=== PATIENT | male | born 1945 | race Caucasian/White ===

== ENCOUNTER → 2016-12-04 | Outpatient (CLI) | payer OTHER ==
[~2016-12-04] MED LIST: AZILECT1 MG PO; B COMPLEX WITH1 EACH PO; CLONIDINE0.1 PO; COZAAR100 MG PO; FISH OIL 1,0001 EAC5 PO; GRALISE600 MG PO; MULTIVITAMINS1 EAC7 PO; NORFLEX100 MG PO; QUINAPRIL 20 MG20 MG PO; SINEMET 25-1001 EAC1 PO; TRIHEXYPHENIDYL2 M1 PO; XANAX 0.25 MG0.25 MG PO; ZOCOR40 MG PO; [UNRECOGNIZED DRUG - OTHER] PO
== END ==
LOC: CAT 02:03
DX: M47.896 Other spondylosis, lumbar region (principal)

== ENCOUNTER 2017-02-21 14:50 | Emergency (ER) | payer OTHER ==
[~2017-02-21] VITALS: Ht 172.7 cm; Wt 83.9 kg
--- NOTE | ~2017-02-21 | EKG ---
[address] [place] [address] ELECTROCARDIOGRAM REPORT Name: ALLISON MOY Room #: [id number] Admission: 02/21/17 Attend Phys: Discharge: 02/21/17 Date of : 41 Report #: [id number] THIS REPORT FOR: //name// [facility] ED Test Date: 2017-02-21 Test Time: 15:18:06 Pat Name: ALLISON MOY Department: Room: 170 Gender: M Rehabilitation Therapy Aide: Ilene LOPES : 1945 Requested By: Dexter Tatum Order Number: [id number] MD: Ty Moncada Measurements Intervals Veyo Rate: 64 P: 28 KS: 170 QRS: 22 QRSD: 104 T: 12 QT: 443 QTc: 457 Interpretive Statements Sinus rhythm Abnormal R-wave progression, early transition Compared to ECG 11/20/2016 16:09:33 No significant changes Electronically Signed On 02-24-2017 10:54:56 CDT by Ty Moncada [email or web address] <ELECTRONICALLY SIGNED> By: Ty Moncada MD 02/24/17 1054 1518 151 Ty Moncada MD /KARLO
[2017-02-21 14:52] VITALS: BP 183/96
[2017-02-21 15:16] LABS: URINE BILIRUBIN NEGATIVE (Negative); URINE BLOOD NEGATIVE (Negative); URINE COLOR YELLOW; URINE GLUCOSE-RANDOM* NEGATIVE (Negative); URINE KETONES NEGATIVE (Negative); URINE LEUKOCYTES-REFLEX NEGATIVE (Negative); URINE PROTEIN (DIPSTICK) NEGATIVE (Negative); URINE UROBILINOGEN 0.2 E.U./dl (0.2-1.0)
[2017-02-21 15:28] LABS: ABSOLUTE NEUTROPHILS 2.9 thou/uL (1.4-8.2); BASOPHILS 0.5 % (0.0-2.0); EOSINOPHILS 1.7 % (0.0-3.0); HEMATOCRIT 39.3 % (42.0-52.0); HEMOGLOBIN 13.2 gm/dL (14.0-18.0); LYMPHOCYTES 26.2 % (24.0-44.0); MCH 31.4 pg (26.0-34.0); MCHC 33.6 g/dL (28.0-37.0); MCV 93.3 fL (80.0-100.0); MONOCYTES 9.5 % (1.0-8.0); PLATELET COUNT 144 thou/uL (150-400); POLYS 62.1 % (36.0-66.0); RBC 4.21 mil/uL (4.50-6.00); RDW 14.9 % (10.5-14.5); WBC 4.6 thou/uL (4.0-11.0)
[2017-02-21 15:31] LABS: ANION GAP 9 mmol/L (7-16); BUN 12 mg/dL (7-18); CHLORIDE 102 mmol/L (98-107); CO2 30 mmol/L (21-32); CREATININE 0.6 mg/dL (0.7-1.3); GLUCOSE 106 mg/dL (74-106); POTASSIUM 3.5 mmol/L (3.5-5.1); SODIUM 141 mmol/L (136-145)
[2017-02-21 15:33] LABS: MANUAL DIFF NO
[2017-02-21 15:39] LABS: TROPONIN-I < 0.04 ng/mL (<0.04-0.07)
[2017-02-21] MEDS ORDERED: XANAX1 MG PO (16:41)
[2017-02-21] MEDS ORDERED: LIPITOR 20 MG T20 M1 PO (16:41)
[2017-02-21] MEDS ORDERED: LEXAPRO20 MG PO (16:43)
[2017-02-21] MEDS ORDERED: HYDROCODONE-AP1 EAC6 PO (16:44)
[2017-02-21] MEDS ORDERED: FLORINEF ACETA0.1 MG PO (16:44)
[2017-02-21] MEDS ORDERED: MELATONIN5 M1 PO (16:45)
[2017-02-21] MEDS ORDERED: MIRAPEX ER0.75 MG PO (16:46)
[2017-02-21] MEDS ORDERED: MIDODRINE HCL10 MG PO (16:46)
[2017-02-21] MEDS ORDERED: REMERON 30 MG T30 M1 PO (16:47)
[2017-02-21] MEDS ORDERED: RYTARY ER 48.71 EACH PO (16:48)
[2017-02-21] MEDS ORDERED: K-DUR10 MEQ PO (16:54)
[2017-02-21] MEDS ORDERED: FLOMAX0.4 MG PO (16:54)
[2017-02-21] MEDS ORDERED: NORCO 10-325 T1 EACH PO (16:55)
[2017-02-21 20:31] VITALS: BP 180/103
== END 2017-02-21 20:32 | disposition home or self-care (01) ==
LOC: ER 14:50 → EROBS 17:39 → ER 17:39 → EROBS 20:32
PROVIDERS: Emergency Medicine
DX: I10 Essential (primary) hypertension (principal); I95.1 Orthostatic hypotension; G20 Parkinson's disease; Z85.828 Personal history of other malignant neoplasm of skin; Z98.890 Other specified postprocedural states